=== PATIENT | female | born 1985 | race African-American/Black ===

== ENCOUNTER 2018-07-26 08:49 | Day surgery (SDC) | payer OTHER ==
[2018-07-25 14:45] VITALS: BMI 29.5
[2018-07-26 09:50] LABS: Bilirubin Negative (Negative); Blood, Urine Negative (Negative); Clarity CLEAR (Clear); Glucose, Urine (Dipstick) Negative (Negative); Leukocyte Negative (Negative); Nitrite Negative (Negative); Protein, Urine (Dipstick) Trace mg/dL (Neg-Trace); Specific Gravity, Urine 1.017 (1.002-1.036); pH, Urine 6.5 (5.0-9.0)
[2018-07-26 09:52] LABS: Bacteria/HPF None Seen HPF (None Seen); Hyaline Casts/LPF 0-3 HYALINE CAST LPF (0-3 Hyaline); Pathc Cast-AUWi Flag 0.43 (0-2.49); RBC/HPF 0-3 HPF (0-3); Squamous Epithelial 0-3 HPF (0-3); WBC/HPF 0-3 HPF (0-3)
[2018-07-26 10:26] LABS: Anion Gap 10 mmol/L (10-20); BUN (Urea Nitrogen) 14 mg/dL (7.0-18.7); Calc. Creatinine Clearance 119 mL/min (70-130); Calcium 8.5 mg/dL (7.8-10.44); Carbon Dioxide 27 mmol/L (22-29); Chloride 105 mmol/L (98-107); Estimated GFR-MDRD Greater than 90; Glucose 79 mg/dL (70-105); Potassium 3.9 mmol/L (3.5-5.1); Sodium 138 mmol/L (136-145)
[2018-07-26 10:27] LABS: BHCG - Serum Negative (NEGATIVE); Lymphocytes 30 % (21-51); MDiff Complete? YES; Mean Corpuscular HGB CONC 30.3 g/dL (32.0-36.0); Mean Corpuscular Hemoglobin 23.3 pg (27.0-31.0); Mean Corpuscular Volume 76.9 fL (78.0-98.0); Mean Platelet Volume 11.2 fL (7.4-10.4); Monocytes 10 % (0-10); Neutrophil 60 % (42-75); Platelet Count 234 thou/uL (130-400); Pregs Control Background? CLEAR/WHITE (CLR/WHITE); Pregs Control Bar Appear? YES (CONTROL BAR); RBC Distribution Width 19.3 % (11.5-14.5); Red Blood Cell (RBC) Count 4.31 mill/uL (4.20-5.40); White Blood Cell (WBC) Count 5.3 thou/uL (4.8-10.8)
[2018-07-26] MEDS ORDERED: Bupivacaine PF 0.5% 30 ML VIAL ONE (11:17)
[2018-07-26] MEDS ORDERED: Bacitracin Zinc Ointment 30 gm TUBE ONE (11:17)
[2018-07-26] MEDS ORDERED: Sodium Chloride 0.9% 10 ML ONE (11:18)
[2018-07-26] MEDS ORDERED: Midazolam HCl 2 mg/2 ml Vial ONE ×2 (11:19→11:34)
[2018-07-26] MEDS ORDERED: Fentanyl 100 MCG/2 ML VIAL ONE (11:19)
--- NOTE | 2018-07-26 11:22 | RAD ---
PORTABLE CHEST ONE VIEW: 07/26/2018 9:38 a.m. HISTORY: Preoperative evaluation. COMPARISON: 04/01/2018 FINDINGS: The heart size is normal. No focal areas of consolidation, pneumothorax, or pleural effusions is see n. IMPRESSION: No acute process. POS: [facility]
[2018-07-26] MEDS ORDERED: Clindamycin/D5W 900 mg/50 ml Premix Bag ONE (11:34)
[2018-07-26] MEDS ORDERED: Triamcinolone 40 MG/ML VIAL ONE (12:31)
[2018-07-26] MEDS ORDERED: Dexamethasone 20 MG/5 ML VIAL ONE (12:46)
[2018-07-26] MEDS ORDERED: Ondansetron PF 4 MG/2 ML Vial ONE (12:46)
[2018-07-26] MEDS ORDERED: PROPOFOL 200 MG/20 ML VIAL ONE (12:46)
[2018-07-26] MEDS ORDERED: Lidocaine 1% PF 5 ML VIAL ONE (12:46)
[2018-07-26] MEDS ORDERED: Ketorolac Tromethamine 30 MG/ML VIAL ONE (13:05)
--- NOTE | 2018-07-26 13:52 | OP ---
DATE OF PROCEDURE: 07/26/2018 SURGEON: Dr. Bernardo Campos ANESTHESIA: General LMA technique. COMPLICATIONS: None. Augmented by 10 mL 0.5% Marcaine block metacarpophalangeal joint level. PREOPERATIVE DIAGNOSES: Mass with possible tendonitis versus avulsion fracture with pain, volar aspe ct distal phalangeal joint, right middle finger. 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 PROCEDURE PERFORMED: 1. Excision of gouty tophi. 2. Tenotomy. 3. Excision of gouty tophi flexor tendon. 4. Arthrotomy distal interphalangeal joint. DESCRIPTION OF PROCEDURE: After successful general endotracheal anesthesia, the limb was prepped and draped. The patient had C-arm brought into the field. We identified the mass, thought it was both wilburn and slightly radial so after exsanguination of limb, inflation tourniquet, and injection with Marcaine 0.5% metacarpophalangeal level, we made a zigzag incision stand off of the central tuft and slightly radial then a Juan incision obliquely oriented ulnarly to the middle of the middle phalanx . We identified neurovascular bundle during a neuroplasty to protect it, and then dissected deep to this and immediately saw a firm white hard pasty type mass consistent with gouty tophi 6-7 mm long, 2 mm wide in the area on x-ray consistent with what we thought was a bony fragment. We looked at the tendon, there was no tendon injury, we lifted up the joint capsule. There was no infection or gout f rom the joint. We did tenotomy for excision of the tophi leaving 95% of the tendon intact. We flexe d the tendon. There was no gout formation. We irrigated this area and then took a radiograph and th e mass was gone compared to what was seen preop. This included frontal sagittal views. We sent a piece of sample to the specimen to rule out tophi, irrigated the area, deflated the tourniq uet and obtained hemostasis. We close the incision with interrupted 5-0 nylon simple pattern. Bulky dressing was applied and the patient left the operating room without evidence operative complication s.
--- NOTE | 2018-07-26 20:42 | RAD ---
INTRAOPERATIVE IMAGING OF THE RIGHT MIDDLE FINGER 07/26/18 COMPARISON: 06/19/18. HISTORY: ORIF. FINDINGS: Five intraoperative images demonstrate apparent resection of an osseous, calcific density at the vola r aspect of the third distal interphalangeal joint. Osseous detail is limited on intraoperative imagi ng. IMPRESSION: Intraoperative imaging as above. POS: [facility]
--- NOTE | 2018-07-31 08:14 | EKG ---
Test Reason : PREOP Blood Pressure : / mmHG Vent. Rate : 067 BPM Atrial Rate : 067 BPM P-R Int : 120 ms QRS Dur : 090 ms QT Int : 386 ms P-R-T Axes : 067 037 059 degrees QTc Int : 407 ms Normal sinus rhythm with sinus arrhythmia Normal ECG No previous ECGs available Confirmed by DR. Kota ROBERTSON ([id number]) on 07/31/2018 8:14:01 AM Referred By: CHIQUIS Confirmed By:DR. Kota ROBERTSON
--- NOTE | 2018-08-08 09:43 | PQF ---
[facility] POST DISCHARGE CLINICAL DOCUMENTATION IMPROVEMENT CLARIFICATION FORM l Todays Date: 08/06/18 l Patients Name MELY RODAS l l Admit Date 07/26/18 l Disch Date 07/26/18 Monotype Caster Name Eduardo Belcher Email: [email or web address]: [phone] To be completed by Monotype Caster: Present Clinical Indicators - Signs / Symptoms Results and Location in Medical Record [ ] Documentation of: [ ] [ ] Documentation of: [ ] [ ] Documentation of: [ ] [ ] Documentation of: [ ] [ ] Risks [ ] [ ] [ ] Treatment [ ] GOUTY TOPHUS FLEXOR TENDON RIGHT MIDDLE FINGER QUERY FOR SIZE OF EXCISED MARGINS [ ] [ ] To be completed by Physician: ZULMA MARAVILLA The documentation in this patients record requires clarification to ensure coding compliance and accuracy. Check the appropriate box and include in your discharge summary. [ ] [ ] [ ] [ ] Please check this box if this does not apply to this patient [ ] Unable to determine [ ] Other diagnosis: Review the following information and exercise your independent professional judgment in responding to the clarification. Based upon the clinical findings, risk factors, and treatment, please clarify if you are treating one of the above probable or suspected diagnoses. Physician Signature: Date Time MTDD
== END 2018-07-26 15:00 | disposition home or self-care (01) ==
LOC: SDC 08:49
PROVIDERS: ATTEND Orthopaedic Surgery Hand Surgery
PROC: 0LB70ZZ Excision of Right Hand Tendon, Open Approach (ICD-10-PCS; principal; 2018-07-26)
DX: M1A.9XX1 Chronic gout, unspecified, with tophus (tophi) (principal); F41.9 Anxiety disorder, unspecified; J45.909 Unspecified asthma, uncomplicated; M79.7 Fibromyalgia; Z79.52 Long term (current) use of systemic steroids; Z79.899 Other long term (current) drug therapy; Z88.0 Allergy status to penicillin
CPT/HCPCS: 71045; 76001; 80048; 81001; 84703; 85025; 88300; 88333; 89060; 93005; 93010; 96374; J1100; J1885; J2001; J2250; J2405; J2704; J3010; J3301; J3490; S0020